=== PATIENT | male | born 1960 | race Caucasian/White ===

== ENCOUNTER 2021-02-16 18:54 | Emergency (ER) | payer BC ==
[2021-02-16 19:20] VITALS: RESP 18
[2021-02-16] MEDS ORDERED: KETOROLAC 30 MG/ML 1 ML VIAL IVP STA (19:24)
--- NOTE | 2021-02-16 19:48 | XR ---
EXAMINATION TYPE: XR chest 2V DATE OF EXAM: 02/16/2021 COMPARISON: NONE HISTORY: Chest pain TECHNIQUE: 2 views FINDINGS: Heart and mediastinum are normal. Lungs are clear. Diaphragm is normal. Bony thorax is inta ct. IMPRESSION: Normal chest.
[2021-02-16 20:07] LABS: Basophils # (A) 0.1 k/uL (0-0.2); Basophils % (A) 0 %; Eosinophils # (A) 0.2 k/uL (0-0.7); Eosinophils % (A) 1 %; HCT 40.4 % (39.0-53.0); HGB 14.4 gm/dL (13.0-17.5); Hyperchromasia Slight; Lymphocytes % (A) 33 %; MCH 30.7 pg (25.0-35.0); MCHC 35.7 g/dL (31.0-37.0); Mean Platelet Volume 7.8; Monocytes # (A) 0.7 k/uL (0-1.0); Monocytes % (A) 6 %; Neutrophils % (A) 58 %; Platelet Count 223 k/uL (150-450); RDW 13.3 % (11.5-15.5); WBC 12.1 k/uL (3.8-10.6)
[2021-02-16 20:12] LABS: Prothrombin Time 10.7 sec (9.0-12.0)
[2021-02-16 20:15] LABS: ALT 63 U/L (4-49); AST 68 U/L (17-59); African American GFR (CKD) >90 (>60 ml/min/1.73 sqM); Albumin 4.3 g/dL (3.5-5.0); Alkaline Phosphatase 57 U/L (38-126); Anion Gap 13 mmol/L; Blood Urea Nitrogen 20 mg/dL (9-20); Calcium 9.6 mg/dL (8.4-10.2); Carbon Dioxide 24 mmol/L (22-30); Chloride 98 mmol/L (98-107); Glucose 101 mg/dL (74-99); Magnesium 1.5 mg/dL (1.6-2.3); Non-African American GFR(CKD) 84 (>60 ml/min/1.73 sqM); Potassium 3.8 mmol/L (3.5-5.1); Sodium 135 mmol/L (137-145); Total Bilirubin 0.5 mg/dL (0.2-1.3); Total Protein 7.1 g/dL (6.3-8.2)
[2021-02-16] MEDS ORDERED: MAGNESIUM SULFATE-D5W PMX 1 GM in DEXTROSE/WATER 1 100ML.BAG IVPB ONE (20:17)
--- NOTE | 2021-02-16 22:07 | ED ---
General Adult HPI - General Chief complaint: Chest Pain Stated complaint: Chest Pain Time Seen by Provider: 02/16/21 19:00 Source: patient, EMS, RN notes reviewed, old records reviewed Mode of arrival: EMS Limitations: no limitations - History of Present Illness Initial comments: Patient is a 60-year-old male with past medical history remarkable for hyp ertension and presents emergency Department complaining of acute onset of chest pain. Patient was at home, watching a movie when he began laughing. He states that he suddenly had acute onset of left inferior chest pain. He states that it radiated along the rib around to the side of his chest. He states this occurred approximately an hour prior to arrival. EMS arrived and administered and 24 mg of aspirin. He also missed her nitroglycerin, which she states did not really have much of an effect. States that the chest pain is slowly, when its own. He was mildly worse with movement. Described as a sharp pain. States it is nearly completely resolved at this time. He states he feels like to press on it and make it hurt worse. Denies any shortness of breath, abdominal pain, nausea, vomiting, lightheadedness, headaches. I think blurry vision. Had no other associated complaint with the chest pain. He presents in the department for this chest pain. Denies any fevers, chills, cough. - Related Data Home Medications Medication Instructions Recorded Confirmed Aspirin EC [Ecotrin Low Dose] 81 mg PO DAILY 02/16/21 02/16/21 Cholecalciferol [Vitamin D3 (25 25 mcg PO HS 02/16/21 02/16/21 Mcg = 1000 Iu)] Glucosamine Sulfate 1,000 mg PO HS 02/16/21 02/16/21 HYDROcodone/APAP 10-325MG [[place] 1 tab PO Q4HR PRN 02/16/21 02/16/21 10-325] Lisinopril-Hctz 20-25 mg 1 tab PO DAILY 02/16/21 02/16/21 [Zestoretic 20-25] Loratadine [Claritin] 10 mg PO HS 02/16/21 02/16/21 Metoprolol Tartrate [Lopressor] 50 mg PO HS 02/16/21 02/16/21 Multivitamins, Thera [Multivitamin 1 tab PO HS 02/16/21 02/16/21 (formulary)] Niacin 500 mg PO BID 02/16/21 02/16/21 [place]-3 Fatty Acids/Fish Oil [Fish 1 cap PO BID 02/16/21 02/16/21 Oil 1,000 mg Softgel] Tamsulosin HCl [Flomax] 0.8 mg PO DAILY 02/16/21 02/16/21 Turmeric Root Extract [Turmeric] 500 mg PO HS 02/16/21 02/16/21 allopurinoL [Zyloprim] 300 mg PO HS 02/16/21 02/16/21 Allergies Allergy/AdvReac Type Severity Reaction Status Date / Time No Known Allergies Allergy Verified 02/16/21 20:39 Review of Systems ROS Statement: Those systems with pertinent positive or pertinent negative responses have been documented in the HPI. Review of Systems: CONST: Denies fever EYES: Denies blurry vision ENT: Denies nasal congestion C/V: Endorses chest pain RESP: Denies shortness of breath GI: Denies abdominal pain : Denies dysuria SKIN: Denies rash. MSK: Denies joint pain. NEURO: Denies headache ROS Other: All systems not noted in ROS Statement are negative. Past Medical History Past Medical History: Hypertension History of Any Multi-Drug Resistant Organisms: None Reported Past Surgical History: Back Surgery Additional Past Surgical History / Comment(s): cervical fusion 2020 Past Psychological History: No Psychological Hx Reported Smoking Status: Never smoker Past Alcohol Use History: Occasional Past Drug Use History: Marijuana General Exam - General Exam Comments Initial Comments: General: Appears in no acute distress. HEAD: Normal with no signs of head trauma. EYES: PERRLA, EOMI, conjunctiva normal, no discharge. ENT: Hearing grossly intact, normal oropharynx. RESPIRATORY: Clear breath sounds bilaterally. No wheezes, rales, or rhonchi. C/V: Regular rate and rhythm. S1 and S2 auscultated, no edema, peripheral pulses 2+ and intact throughout. Chest pain is reproducible in the left inferior most rib upon contact with the sternum. Chest wall pain appears to be present. ABD: Abd is soft, nontender, nondistended EXT: Normal range of motion, no obvious deformity SKIN: No rashes or lesions observed on exposed skin. NEURO: Alert and oriented x 4. Cranial nerves II-XII intact. No focal sensory or strength deficits. Limitations: no limitations Course Vital Signs 02/16/21 02/16/21 02/16/21 19:09 20:02 20:09 Temperature 99.9 F H Pulse Rate 69 71 Pulse Rate [ 71 [employer] ] Respiratory 18 18 Rate Blood Pressure 152/75 132/83 O2 Sat by Pulse 95 95 Oximetry 02/16/21 02/16/21 02/16/21 21:01 21:48 23:36 Temperature 97.6 F 97.3 F L Pulse Rate 70 64 61 Pulse Rate [ [employer] ] Respiratory 18 18 18 Rate Blood Pressure 142/54 140/91 O2 Sat by Pulse 97 96 98 Oximetry Medical Decision Making - Medical Decision Making Based on patient's presentation and physical exam, I'm concerned for possible cardiac etiology for his current symptoms. Cannot rule out musculoskeletal cause either, particularly with his description of the pain, worse with movement, as well as reproduction on exam. I discussed with him I would like to obtain a cardiac workup and patient was in agreement this plan. He will also be administered Toradol for pain management. Does not require aspirin as he already received it. We'll be connected to continuous cardiac monitoring while he is here in the department. Patient's EKG shows no signs of ischemia. Chest x-ray shows no acute cardiopulmonary process. Laboratory studies are remarkable for a negative troponin. Patient is mildly hypomagnesemic to 1.5. Is very mildly elevated AST and ALT of in the 60s. Remainder of the labs are unremarkable. On reevaluation, patient's chest pain is resolved. His initial troponin was taken within 3 hours of the initial chest pain, I did recommend admission versus remaining in the department for repeat troponin level. The patient does not wish to stay, but is willing to remain for repeat troponin. I do believe this is reasonable, as the department is busy at this time. Patient was in agreement this plan. Heart score is low at 2. Repeat troponin is also negative. On reevaluation, patient remains asymptomatic. Vital signs have remained within normal limits a stable throughout his stay. I discussed with him that due to 2 negative troponins, as well as low heart score, do believe it is safe for him to follow up with cardiology outpatient. He was in agreement with this plan. With his negative workup, I strongly suspect that his chest pain is secondary to chest wall pain from muscular skeletal issues. He expressed understanding. I instructed the patient to follow up with their PCP in the next 3 days. I provided contact information for follow up with Dr. Lopez of cardiology. I explained that the patient should return to the emergency department if they experience any worsening symptoms. Strict return precautions were discussed with the patient. The patient expressed understanding of these instructions. I answered all questions that the patient had. The patient was discharged home in good condition with their prescriptions and follow up information. - Lab Data Result diagrams: 02/16/21 19:33 02/16/21 19:33 Lab Results 02/16/21 02/16/21 02/16/21 Range/Units 19:33 19:33 19:33 WBC 12.1 H (3.8-10.6) k/uL RBC 4.70 (4.30-5.90) m/uL Hgb 14.4 (13.0-17.5) gm/dL Hct 40.4 (39.0-53.0) % MCV 86.0 (80.0-100.0) fL MCH 30.7 (25.0-35.0) pg MCHC 35.7 (31.0-37.0) g/dL RDW 13.3 (11.5-15.5) % Plt Count 223 (150-450) k/uL MPV 7.8 Neutrophils % 58 % Lymphocytes % 33 % Monocytes % 6 % Eosinophils % 1 % Basophils % 0 % Neutrophils # 7.0 (1.3-7.7) k/uL Lymphocytes # 4.0 (1.0-4.8) k/uL Monocytes # 0.7 (0-1.0) k/uL Eosinophils # 0.2 (0-0.7) k/uL Basophils # 0.1 (0-0.2) k/uL Hyperchromasia Slight PT 10.7 (9.0-12.0) sec INR 1.0 (<1.2) APTT 23.0 (22.0-30.0) sec Sodium 135 L (137-145) mmol/L Potassium 3.8 (3.5-5.1) mmol/L Chloride 98 (98-107) mmol/L Carbon Dioxide 24 (22-30) mmol/L Anion Gap 13 mmol/L BUN 20 (9-20) mg/dL Creatinine 0.98 (0.66-1.25) mg/dL Est GFR (CKD-EPI)AfAm >90 (>60 ml/min/1.73 sqM) Est GFR (CKD-EPI)NonAf 84 (>60 ml/min/1.73 sqM) Glucose 101 H (74-99) mg/dL Calcium 9.6 (8.4-10.2) mg/dL Magnesium 1.5 L (1.6-2.3) mg/dL Total Bilirubin 0.5 (0.2-1.3) mg/dL AST 68 H (17-59) U/L ALT 63 H (4-49) U/L Alkaline Phosphatase 57 (38-126) U/L Troponin I (0.000-0.034) ng/mL Total Protein 7.1 (6.3-8.2) g/dL Albumin 4.3 (3.5-5.0) g/dL 02/16/21 02/16/21 Range/Units 19:33 22:30 WBC (3.8-10.6) k/uL RBC (4.30-5.90) m/uL Hgb (13.0-17.5) gm/dL Hct (39.0-53.0) % MCV (80.0-100.0) fL MCH (25.0-35.0) pg MCHC (31.0-37.0) g/dL RDW (11.5-15.5) % Plt Count (150-450) k/uL MPV Neutrophils % % Lymphocytes % % Monocytes % % Eosinophils % % Basophils % % Neutrophils # (1.3-7.7) k/uL Lymphocytes # (1.0-4.8) k/uL Monocytes # (0-1.0) k/uL Eosinophils # (0-0.7) k/uL Basophils # (0-0.2) k/uL Hyperchromasia PT (9.0-12.0) sec INR (<1.2) APTT (22.0-30.0) sec Sodium (137-145) mmol/L Potassium (3.5-5.1) mmol/L Chloride (98-107) mmol/L Carbon Dioxide (22-30) mmol/L Anion Gap mmol/L BUN (9-20) mg/dL Creatinine (0.66-1.25) mg/dL Est GFR (CKD-EPI)AfAm (>60 ml/min/1.73 sqM) Est GFR (CKD-EPI)NonAf (>60 ml/min/1.73 sqM) Glucose (74-99) mg/dL Calcium (8.4-10.2) mg/dL Magnesium (1.6-2.3) mg/dL Total Bilirubin (0.2-1.3) mg/dL AST (17-59) U/L ALT (4-49) U/L Alkaline Phosphatase (38-126) U/L Troponin I <0.012 <0.012 (0.000-0.034) ng/mL Total Protein (6.3-8.2) g/dL Albumin (3.5-5.0) g/dL - EKG Data -: EKG Interpreted by Me EKG Comments: 12-lead Electrocardiogram Interpretation Note EKG was reviewed and interpreted by myself. 12-lead ECG performed at 1903 is interpreted by me as revealing normal sinus rhythm at a rate of 69 beats per minute. [place] is normal. NC interval is 178 ms, QRS duration is 98 ms, QTc is 407 ms.. Patient does have an isolated T-wave inversion in lead III. There are no other acute ST segment or T-wave abnormalities.. R wave progression across the precordium was satisfactory. By my interpretation this EKG is non-diagnostic for acute ischemia. Disposition Clinical Impression: Chest wall pain Disposition: HOME SELF-CARE Condition: Good Instructions (If sedation given, give patient instructions): Chest Pain (ED) Is patient prescribed a controlled substance at d/c from ED?: No Referrals: Juarez Rangel MD [Primary Care Provider] - 1-2 days Alex Lopez MD [STAFF PHYSICIAN] - 1-2 days
[2021-02-16 23:37] VITALS: BP 140/91; PULSE 61; TEMP 97.3
== END 2021-02-16 23:42 | disposition home or self-care (01) ==
LOC: EC 18:54
DX: R07.89 Other chest pain (principal); I10 Essential (primary) hypertension; F12.90 Cannabis use, unspecified, uncomplicated; Z79.82 Long term (current) use of aspirin; Z79.899 Other long term (current) drug therapy
CPT/HCPCS: 36415; 93005; 80053; 83735; 84484; 85025; 85610; 85730; 71046; 99285; 96365; 96375; J3475